=== PATIENT | male | born 1960 | race Caucasian/White ===

== ENCOUNTER 2019-11-20 12:26 | Outpatient (CLI) | payer BC, SELFPAY ==
[2019-11-20 15:34] LABS: Basophils # 0.1 10^3/uL (0.0-0.1); Basophils % 0.7 %; Eosinophils # 0.1 10^3/uL (0.0-0.8); Eosinophils % 1.6 %; Hematocrit 46.1 % (42.0-52.0); Lymphocytes # 2.1 10^3/uL (0.8-4.8); Lymphocytes % 28.9 %; Mean Corpuscular HGB Conc 34.7 g/dL (30.0-36.0); Mean Corpuscular Hemoglobin 33.2 pg (28.0-34.0); Mean Corpuscular Volume 95.6 fL (80-94); Mean Platelet Volume 10.1 fL (7.4-10.4); Monocytes # 0.7 10^3/uL (0.2-0.9); Monocytes % 8.9 %; Neutrophils # 4.4 10^3/uL (1.8-7.7); Neutrophils % 59.5 %; Nucleated Red Blood Cells % 0 %; Platelet Count 185 10^3/cmm (130-400); Red Blood Count 4.82 10^6/uL (4.1-5.3); Red Cell Distribution Width 14.2 % (12.1-15.1); White Blood Count 7.4 10^3/uL (4.0-10.0)
[2019-11-20 15:43] LABS: Anion Gap 15.5 (5-19); Blood Urea Nitrogen 22 mg/dL (6-20); Calcium 10.4 mg/dL (8.5-10.5); Carbon Dioxide 29 mmol/L (22-29); Chloride 97 mmol/L (98-107); Glomerular Filtration Rate 68.8 mL/min (90-130); Glucose 80 mg/dL (65-115); Osmolality Calculated 280 mOsm/kg (285-295); Potassium 4.5 mmol/L (3.5-5.1); Sodium 137 mmol/L (136-145)
== END 2019-11-20 12:27 | disposition home or self-care (01) ==
PROVIDERS: Family Provider Family Medicine; PCP Family Medicine; Visit Provider Internal Medicine Cardiovascular Disease
DX: R06.02 Shortness of breath (principal); I50.9 Heart failure, unspecified; I51.9 Heart disease, unspecified; I10 Essential (primary) hypertension; I43 Cardiomyopathy in diseases classified elsewhere
CPT/HCPCS: 80048; 85025; 85610

== ENCOUNTER 2019-11-22 08:14 | Outpatient (CLI) | payer BC, SELFPAY ==
[2019-11-22] VITALS (22 sets, daily range): BP systolic 117–152; BP diastolic 73–97; PULSE 65–94; RESP 4–21; TEMP 36.6; O2SAT 95–100; BMI 26.1
--- NOTE | 2019-11-22 06:00 | XACV_ITS ---
Ht: 185 cm Wt: 90 kg BSA: 2.16 m2 Gender: Male : 1960 Any Known Allergies: No known allergies Exam Priority: Routine Procedure(s): Procedure Description: Diagnostic procedure Procedure Description: Left ventriculography Procedure Description: Coronary Angiography Diagnostic Cath Status: Elective Diagnostic Findings No significant disease noted in the Left Main, LAD, Circumflex, or RCA coronary arteries. Coronary angiography shows right dominance. PCI Status: Elective Conclusions No significant disease noted in the Left Main, LAD, Circumflex, or RCA coronary arteries. All yeboah are hypokinetic. Mild left ventricular systolic dysfunction. Ejection fraction of 45%. Indication for left heart: Cardiomyopathy/new onset of heart failure. Recommendations Continue current medical management and risk factor modification. Diagnostic RX Recommendation: medical therapy and/or counseling Ventriculography Ejection Fraction: 45.0 % Pressures Phase:Rest AO : 143 mmHg / 40 mmHg ( 84 mmHg ) @ 3:14:00 AM 151 mmHg / 67 mmHg ( 100 mmHg ) @ 3:14:00 AM LV : 148 mmHg / -2 mmHg / @ 3:13:00 AM 130 mmHg / -2 mmHg / @ 3:14:00 AM Clinical Evaluation EBL: 5mL-10mL Procedural Details Procedure Consent Obtained. Pre-Procedure Time Out. Identified patient by full name and date of as verbalized by the patient/guarantor. Does the consent match the physician's order: Yes. Accurate & Complete Informed Consent: Yes. Inpatient/Outpatient History & Physical on Chart: Yes. If H&P is completed, is and addenduem needed: No; If yes, is the addendum complete: N/A. Visualize and Verify Site with Patient/Guarantor: N/A. Relevant Radiology Images available: Yes. Pre-op teaching completed and patient verbalized understanding. The risks, benefits, and alternatives of sedation and/or procedure were discussed by physician. The patient agrees to continue. Procedure started. Correct patient, site and procedure confirmed by cath team. Current diagnosis: Chest Pain. PERRLA. Strong, equal hand legal technician bilaterally. Lungs clear x 5 lobes. IV Site on Arrival: 20 gauge in the left anticubital. IV Fluids: 0.9% NaCl at KVO. 0 mL infused prior to laboratory courier. Pre Procedural Pulses: bilateral dorsalis pedis was Doppled. Pre Procedural Pulses: bilateral posterior tibial was 2+. Pre Procedural Pulses: bilateral radial was 3+. Oxygen started at 2liters/min via nasal canula. right radial was prepped with chloroprep then draped in the usual sterile fashion. bilateral groins was prepped with chloroprep then draped in the usual sterile fashion. Physician notified. Baseline sample Acquired. HR: 63 BPM. Equipment: 6F - Radial. [employer]eliVideo Manifold Kit Model BT 2000. Cardiac Cath Pack. Heparinized Saline (2 units/mL), 1000 mL bag. Physician arrived. Physician scrubbed in. Immediate Pre-Procedure Time Out. Correct Patient: Yes; Correct Procedure: Yes; Correct Site: Yes; Correct Patient Position: Yes; Correct Supplies: Yes; Dried Flammable Prep: Yes; Blood Products Available: No;. Arterial access obtained. A 5 nicaraguan TIG catheter in over wire. Multiple views taken of left coronary artery. Catheter redirected to the RCA. Multiple views taken of right coronary artery. Catheter out. A 5 nicaraguan Angled Pig catheter in over wire. EDP Sample taken: LV 148/-2,12; HR: 67 BPM; SpO2: Off%. LV gram performed in SAUER @ 10 mL/second for a total of 30 mL. EDP Sample taken: LV 130/-3,10; HR: 67 BPM; SpO2: 97%. Pullback taken: LV Off; AO Off; Mean: , Peak to Peak: , SEP: ; HR: 70 BPM; SpO2: 98%. TR band placed. Hemostasis obtained. A TR Band was successful obtaining hemostatsis at the Right Radial artery insertion site. Post Procedure: Pulses reassessed and unchanged. PERRLA. Strong, equal hand legal technician bilaterally. No VTE prophylaxis required. Medication's Wasted: Lidocaine 1% = 18 mL. Medication's Wasted: Nitro = 49.8 mg. Medication's Wasted: Heparin = 1000 units. Total IV fluids: 50 mL. Contrast type used: Omnipaque 300 mgI/mL, 500 mL bottle. Post-op diagnosis: Normal Coronaries. Complications: None. Estimated blood loss: 5mL-10mL. Vital chart was stopped. Procedure completed. Patient transferred by wheelchair to 1st floor. [facility] Clinical Fraility Score: 3: Managing Well. Cast Iron Dipper Indications: Cardiomyopathy. Cast Iron Dipper Indications: LV Dysfunction. Chest Pain Symptom Assessment: Atypical Angina. Cardiovascular Instability: No. Site: Right Radial artery Sheath Size: 6 Fr Hemostasis Method: TR Band Hemostasis Success: Successful Procedure Medications Start: 8:59 AM Stop: 8:59 AM Medication: Versed Amount: 1 mg Route: I.V. Start: 8:59 AM Stop: 8:59 AM Medication: Fentanyl Amount: 50 mcg Route: I.V. Start: 9:02 AM Stop: 9:02 AM Medication: Nitrogylcerin Amount: 200 mcg Route: I.A. Start: 9:04 AM Stop: 9:04 AM Medication: Heparin Amount: 5000 units Route: I.V. Start: 9:11 AM Stop: 9:11 AM Medication: Versed Amount: 1 mg Route: I.V. Start: 9:11 AM Stop: 9:11 AM Medication: Fentanyl Amount: 50 mcg Route: I.V. I, the attending physician, have reviewed and verified all procedure medications. Yes, all medications given per verbal order History/Risk Factors Hypertension: Yes Dyslipidemia: Yes Peripheral Arterial Disease (PAD): No Myocardial Infarction (HI): No Obesity: No Renal Disease: No Tobacco Use: Current/Recent(w/in 1 year) Prior Interventions PCI: No CABG: No Valve Surgery: No Report Signatures Finalized by:Zainab Lin MD on 12/05/2019 6:42:16 PM
[2019-11-22] MEDS: diphenhydrAMINE 50 mg Capsule PO (07:42)
--- NOTE | 2019-11-22 08:30 | PC.NURSE ---
DR HARGROVE AT BEDSIDE PATIENT ASSESSED AND A NEW H & P WAS COMPLETED IN [facility].
--- NOTE | 2019-11-22 08:39 | PM.HP ---
Providers/Chief Complaint Admitting Physician: Zainab Lin MD Primary Care Provider: Jason Joshua MD Chief Complaint: Left heart Cath History of Present Illness Radhames Olmos is a 59 year old male Past medical history significant for hypertension, history of tobacco abuse and recently onset of new heart failure with LV dysfunction estimated ejection fraction 30% for which patient was admitted to the hospital. He was diuresed effectively and started on optimal medical regimen. Overall he is doing fine from a cardiac perspective however corrected position of heart failure ischemic versus nonischemic were tried to tease out through stress test stress test was consistent with scarring versus old myocardial infarction We were not able to exclude multivessel coronary artery disease it is therefore discussed that we should perform coronary angiogram to exclude ischemic etiology. Today patient is here for this reason. He has been explained all risks benefits and alternative for the procedure. His labs are within normal acceptable range. Patient has been explained all risks benefits and alternative for the procedure by myself. He would like to proceed with it. Review of Systems Const: Denies: fever or chills Card: Denies: chest pain or palpitations Resp: Reports: shortness of breath GI: Denies: abdominal pain, nausea or vomiting Skin/Breast: Denies: rash Neuro: Denies: headache or numbness in extremities Medications/Allergies Home Medications Medication Instructions Recorded Confirmed Last Taken Type lisinopril 20 mg PO DAILY 11/22/19 11/22/19 11/21/19 20:30 History Allergies Allergy/AdvReac Type Severity Reaction Status Date / Time No Known Allergies Allergy Verified 11/22/19 08:03 PFSH Acute PFSH: Medical History (Updated 11/22/19 @ 08:45 by aZinab Lin MD) Cardiomyopathy as manifestation of underlying disease Social History Smoking and tobacco status: current every day smoker Vitals/I&O/Wt Last Vital Signs Temp 97.8 F 11/22/19 07:55 Pulse 81 11/22/19 07:55 Resp 16 11/22/19 07:55 BP 152/86 11/22/19 07:55 Pulse Ox 99 11/22/19 07:55 Weight last 48 hrs Weight 198 lb Physical Exam Narrative: EXAM NARRATIVE: GENERAL: Patient is alert, awake and oriented x3. NECK: No jugular vein distension. HEENT: No cyanosis. No icterus. No pallor. HEART: Regular S1 and S2. No murmur, rub or gallop. LUNGS: Clear to auscultate bilaterally. ABDOMEN: Soft, nontender and nondistended. Positive bowel sounds. No guarding, rebound or tenderness. CENTRAL NERVOUS SYSTEM: Grossly nonfocal. EXTREMITIES: Lower extremities without edema bilaterally. A&P Assessment and plan (1) Hypertension: Optimally controlled. Status: Acute Code(s): I10 - Essential (primary) hypertension (2) CHF (congestive heart failure): Well compensated. Continue current regimen Status: Acute Code(s): I50.9 - Heart failure, unspecified (3) Cardiomyopathy as manifestation of underlying disease: Patient has new onset of LV dysfunction with cardiomyopathy. By echocardiogram he has a severely depressed ejection fraction. Today we are performing coronary artery angiogram in order to characterize ischemic versus nonischemic etiology. Patient has been explained all risks benefits and alternative for the procedure. He has given us permission to proceed with it. Status: Acute Code(s): I43 - Cardiomyopathy in diseases classified elsewhere Attestations Medical Necessity Statement*: I'm not expecting his stay to cross more than a few hours Coding Level of Care Code New Pt Acute Principal Data Architect for [facility] Fwd Patient Type New History Expanded Problem Focused Exam Expanded Problem Focused Medical Decision Making Moderate Complexity Diagnoses Hypertension I10 CHF (congestive heart failure) I50.9 Cardiomyopathy as manifestation of underlying disease I43
== END 2019-11-22 18:00 | disposition home or self-care (01) ==
LOC: CR 08:16 → CSU 10:18 → OPCSU 11-23 08:03
PROVIDERS: Family Provider Family Medicine; PCP Family Medicine; Visit Provider Internal Medicine Cardiovascular Disease
DX: I50.21 Acute systolic (congestive) heart failure (principal); R07.9 Chest pain, unspecified; I10 Essential (primary) hypertension; I43 Cardiomyopathy in diseases classified elsewhere
CPT/HCPCS: 93452; C1769; C1887; C1894; J1644; J2001; J2250; J3010; J3490; J7030; Q0163; Q9967

== ENCOUNTER → 2020-06-09 17:46 | Outpatient (BNVA) | payer BC, SELFPAY | PROVIDERS: Family Provider Family Medicine; PCP Family Medicine; Visit Provider Emergency Medicine | DX: Z11.59 Encounter for screening for other viral diseases (principal) | CPT/HCPCS: 87635 ==

== ENCOUNTER → 2020-09-09 10:25 | Outpatient (BNVA) | payer BC, SELFPAY | PROVIDERS: Family Provider Family Medicine; PCP Family Medicine; Visit Provider Family Medicine | DX: I10 Essential (primary) hypertension (principal); I50.9 Heart failure, unspecified; I43 Cardiomyopathy in diseases classified elsewhere; F17.200 Nicotine dependence, unspecified, uncomplicated | CPT/HCPCS: 80053; 80061 ==

== ENCOUNTER → 2021-03-12 10:29 | Outpatient (BNVA) | payer BC, SELFPAY | PROVIDERS: Family Provider Family Medicine; PCP Family Medicine; Visit Provider Family Medicine | DX: I10 Essential (primary) hypertension (principal); I50.9 Heart failure, unspecified; I43 Cardiomyopathy in diseases classified elsewhere; N52.9 Male erectile dysfunction, unspecified; F17.200 Nicotine dependence, unspecified, uncomplicated; Z71.6 Tobacco abuse counseling; N52.01 Erectile dysfunction due to arterial insufficiency | CPT/HCPCS: 80053; 80061 ==

== ENCOUNTER → 2021-10-10 10:29 | Outpatient (BNVA) | payer SELFPAY | PROVIDERS: Family Provider Family Medicine; PCP Family Medicine; Visit Provider Family Medicine | DX: I10 Essential (primary) hypertension (principal); E78.1 Pure hyperglyceridemia | CPT/HCPCS: 80053; 80061 ==

== ENCOUNTER → 2022-04-06 08:23 | Outpatient (BNVA) | payer SELFPAY | PROVIDERS: Family Provider Family Medicine; PCP Family Medicine; Visit Provider Family Medicine | DX: I10 Essential (primary) hypertension; E78.1 Pure hyperglyceridemia; I50.9 Heart failure, unspecified; N52.01 Erectile dysfunction due to arterial insufficiency; I43 Cardiomyopathy in diseases classified elsewhere | CPT/HCPCS: 80048; 80061 ==

== ENCOUNTER → 2022-10-06 08:31 | Outpatient (BNVA) | payer MEDICAID, SELFPAY | PROVIDERS: Family Provider Family Medicine; PCP Family Medicine; Visit Provider Family Medicine | DX: Z12.5 Encounter for screening for malignant neoplasm of prostate (principal); R74.8 Abnormal levels of other serum enzymes | CPT/HCPCS: 80048; G0103 ==

== ENCOUNTER → 2023-04-05 08:54 | Outpatient (BNVA) | payer MEDICAID, SELFPAY | PROVIDERS: Family Provider Family Medicine; PCP Family Medicine; Visit Provider Family Medicine | DX: I10 Essential (primary) hypertension (principal); Z13.1 Encounter for screening for diabetes mellitus; R73.9 Hyperglycemia, unspecified | CPT/HCPCS: 80053; 80061; 83036 ==

== ENCOUNTER → 2023-04-29 08:49 | Outpatient (BNVA) | payer MEDICAID, SELFPAY | PROVIDERS: Family Provider Family Medicine; PCP Family Medicine; Visit Provider Family Medicine | DX: E87.1 Hypo-osmolality and hyponatremia (principal) | CPT/HCPCS: 80048 ==

== ENCOUNTER → 2024-04-12 08:58 | Outpatient (BNVA) | payer MEDICAID, SELFPAY | PROVIDERS: Family Provider Family Medicine; PCP Family Medicine; Referring Provider Family Medicine; Visit Provider Family Medicine | DX: I10 Essential (primary) hypertension (principal); E78.1 Pure hyperglyceridemia; Z12.5 Encounter for screening for malignant neoplasm of prostate | CPT/HCPCS: 80053; 80061; G0103 ==

== ENCOUNTER → 2024-10-23 10:17 | Outpatient (BNVA) | payer SELFPAY | PROVIDERS: Family Provider Family Medicine; PCP Family Medicine; Referring Provider Family Medicine; Visit Provider Family Medicine | DX: I50.9 Heart failure, unspecified (principal); I43 Cardiomyopathy in diseases classified elsewhere; I10 Essential (primary) hypertension; Z23 Encounter for immunization; E78.1 Pure hyperglyceridemia; Z63.6 Dependent relative needing care at home | CPT/HCPCS: 80048 ==